=== PATIENT | male | born 1945 | race Caucasian/White ===

== ENCOUNTER → 2016-09-09 | Outpatient (CLI) | payer MEDICARE, OTHER ==
[~2016-09-09] MED LIST: OMNIPAQUE 350 MG/ML, 75ML BOTTLE ONE
== END | disposition home or self-care (01) ==
LOC: CFH 09:34
PROVIDERS: ATTEND Nurse Practitioner
DX: J43.9 Emphysema, unspecified (principal); R59.1 Generalized enlarged lymph nodes; J92.9 Pleural plaque without asbestos; Z87.891 Personal history of nicotine dependence; R91.8 Other nonspecific abnormal finding of lung field; R06.02 Shortness of breath
CPT/HCPCS: 71260; 82565; 93978; Q9967

== ENCOUNTER 2016-09-15 05:18 | Day surgery (SDC) | payer MEDICARE, OTHER ==
[~2016-09-15] VITALS: Ht 182.9 cm; Wt 72.0 kg
[2016-09-15] MEDS ORDERED: ASPI-496 PO (06:32)
[2016-09-15] MEDS ORDERED: LACTATED RINGERS 1,000 ML IV SCH (06:32)
[2016-09-15 06:33] VITALS: BP 112/74
[2016-09-15] MEDS ORDERED: FENTANYL PF 250 MCG/5ML ONE (07:12)
[2016-09-15] MEDS ORDERED: MIDAZOLAM 1 MG/ML, 2ML ONE (07:12)
[2016-09-15] MEDS ORDERED: MEPERIDINE/PF 25MG/0.5ML IVPush PRN (07:30)
[2016-09-15] MEDS ORDERED: ACETAMINOPHEN 325 MG TABLET PO PRN (07:30)
[2016-09-15] MEDS ORDERED: LABETALOL 5MG/ML, 20ML IV PRN (07:30)
[2016-09-15] MEDS ORDERED: PROMETHAZINE 25 MG/ML, 1ML IV PRN (07:30)
[2016-09-15] MEDS ORDERED: MIDAZOLAM 1 MG/ML, 2ML IV PRN (07:30)
[2016-09-15] MEDS ORDERED: HYDROmorphone 1 MG/ML, 1ML IV PRN (07:30)
[2016-09-15] MEDS ORDERED: METOCLOPRAMIDE 5 MG/ML, 2ML IV PRN (07:30)
[2016-09-15] MEDS ORDERED: ONDANSETRON 2MG/ML, 2ML IVPush PRN (07:30)
[2016-09-15] MEDS ORDERED: OXYcodone 5 MG/5 ML ORAL.SOL UDC PO PRN (07:30)
[2016-09-15] MEDS ORDERED: hydrALAzine 20 MG/ML, 1ML IV PRN (07:30)
[2016-09-15] MEDS ORDERED: ONDANSETRON 2MG/ML, 2ML ONE (07:39)
[2016-09-15] MEDS ORDERED: ROCURONIUM 10 MG/ML ONE (07:39)
[2016-09-15] MEDS ORDERED: PHENYLEPHRINE 10 MG/ML ONE (07:39)
[2016-09-15] MEDS ORDERED: SUCCINYLCHOLINE 20 MG/ML, 10ML ONE (07:39)
[2016-09-15] MEDS ORDERED: PROPOFOL 10 MG/ML, 20ML ONE (07:39)
[2016-09-15] MEDS ORDERED: DEXAMETHASONE 4 MG/ML, 1ML ONE (07:39)
[2016-09-15] MEDS ORDERED: FENTANYL PF 100 MCG/2ML ONE (09:06)
[2016-09-15] MEDS ORDERED: OXYcodone 5 MG/5 ML ORAL.SOL UDC ONE (09:06)
[2016-09-15] MEDS: FENTANYL PF 100 MCG/2ML IV PRN ×4 (09:10→09:29)
== END 2016-09-15 11:00 | disposition home or self-care (01) ==
LOC: OUT 05:18
PROVIDERS: ATTEND Internal Medicine
DX: C34.12 Malignant neoplasm of upper lobe, left bronchus or lung (principal); F17.210 Nicotine dependence, cigarettes, uncomplicated; M19.90 Unspecified osteoarthritis, unspecified site; Z82.49 Family history of ischemic heart disease and other diseases of the circulatory system
CPT/HCPCS: 31623; 31627; 31628; 71010; 88112; 88172; 88173; 88177; 88305; 93005; J0330; J1100; J2250; J2370; J2405; J2704; J3010; J7120; 31625; 31629

== ENCOUNTER → 2016-09-18 | Outpatient (CLI) | payer MEDICARE, OTHER ==
[~2016-09-18] MED LIST changes: +ASPI-496 PO; -OMNIPAQUE 350 MG/ML, 75ML BOTTLE ONE
== END | disposition home or self-care (01) ==
LOC: PETCFH 08:59
PROVIDERS: ATTEND Internal Medicine
DX: C34.12 Malignant neoplasm of upper lobe, left bronchus or lung (principal); R59.1 Generalized enlarged lymph nodes; R91.8 Other nonspecific abnormal finding of lung field
CPT/HCPCS: 78815; A9552

== ENCOUNTER 2016-10-12 21:40 | Emergency (ER) | payer MEDICARE, OTHER ==
[~2016-10-12] VITALS: Ht 182.9 cm; Wt 73.4 kg
[2016-10-12 22:07] VITALS: BP 124/92
== END 2016-10-12 23:32 | disposition home or self-care (01) ==
LOC: ED 23:03
DX: K56.41 Fecal impaction (principal); F17.200 Nicotine dependence, unspecified, uncomplicated; Z85.118 Personal history of other malignant neoplasm of bronchus and lung
CPT/HCPCS: 99284

== ENCOUNTER 2016-10-15 11:28 | Day surgery (SDC) | payer MEDICARE, OTHER ==
[~2016-10-15] VITALS: Ht 182.9 cm; Wt 72.0 kg
[2016-10-15 12:14] VITALS: BP 115/78
[2016-10-15] MEDS ORDERED: SODIUM CHLORIDE 0.9% 1,000 ML IV SCH (12:30)
[2016-10-15] MEDS ORDERED: VANCOMYCIN 1,400 MG in SODIUM CHLORIDE 0.9% 250 ML IV ONE (12:30)
[2016-10-15] MEDS ORDERED: VANCOMYCIN PER PHARMACY MC ONE (12:30)
[2016-10-15] MEDS ORDERED: NALOXONE 1 MG/ML, 2ML ONE (13:05)
[2016-10-15] MEDS ORDERED: FENTANYL PF 100 MCG/2ML ONE (13:05)
[2016-10-15] MEDS ORDERED: FLUMAZENIL 0.1 MG/1 ML, 5ML ONE (13:05)
[2016-10-15] MEDS ORDERED: MIDAZOLAM 1 MG/ML, 5ML ONE (13:05)
[2016-10-15] MEDS ORDERED: LIDOCAINE 1%, 20ML ONE (13:14)
== END 2016-10-15 15:30 | disposition home or self-care (01) ==
LOC: OUT 11:28
PROVIDERS: ATTEND Internal Medicine Hematology & Oncology
DX: C34.90 Malignant neoplasm of unspecified part of unspecified bronchus or lung (principal); Z88.0 Allergy status to penicillin
CPT/HCPCS: 36561; 76937; 77001; 99156; 99157; C1788; C1894; J1642; J2250; J3010; J3370; J3490; J7030; J7050; J2310

== ENCOUNTER → 2016-11-10 | Outpatient (CLI) | payer MEDICARE, OTHER | END | disposition home or self-care (01) | LOC: ROC 10:31 | PROVIDERS: ATTEND Radiology Radiation Oncology | DX: C34.32 Malignant neoplasm of lower lobe, left bronchus or lung (principal) | CPT/HCPCS: G0463 ==

== ENCOUNTER → 2016-11-25 | Outpatient (CLI) | payer MEDICARE, OTHER | END | disposition home or self-care (01) | LOC: RAD 16:14 | PROVIDERS: ATTEND Internal Medicine Hematology & Oncology | DX: M17.11 Unilateral primary osteoarthritis, right knee (principal); M25.761 Osteophyte, right knee; C34.90 Malignant neoplasm of unspecified part of unspecified bronchus or lung; C79.31 Secondary malignant neoplasm of brain; I81 Portal vein thrombosis; I95.1 Orthostatic hypotension; Z92.21 Personal history of antineoplastic chemotherapy ==

== ENCOUNTER → 2016-12-15 | Outpatient (CLI) | payer MEDICARE, OTHER ==
[2016-12-15 15:59] LABS: BLOOD UREA NITROGEN 17 mg/dL (7-18)
== END | disposition home or self-care (01) ==
LOC: LAB 12:54
PROVIDERS: ATTEND Radiology Radiation Oncology
DX: C79.31 Secondary malignant neoplasm of brain (principal); C34.90 Malignant neoplasm of unspecified part of unspecified bronchus or lung; T50.8X4A Poisoning by diagnostic agents, undetermined, initial encounter
CPT/HCPCS: 36415; 82565; 84520

== ENCOUNTER → 2016-12-24 | Outpatient (CLI) | payer MEDICARE, OTHER ==
[~2016-12-24] MED LIST changes: +GADOBUTROL 7.5 MMOL/7.5 ML VIAL ONE
== END | disposition home or self-care (01) ==
LOC: CFH 13:12
PROVIDERS: ATTEND Radiology Radiation Oncology
DX: C79.31 Secondary malignant neoplasm of brain (principal); C34.12 Malignant neoplasm of upper lobe, left bronchus or lung; I67.82 Cerebral ischemia; Z92.3 Personal history of irradiation
CPT/HCPCS: 70553; A9585

== ENCOUNTER → 2016-12-31 | Outpatient (CLI) | payer MEDICARE, OTHER ==
[~2016-12-31] MED LIST changes: -GADOBUTROL 7.5 MMOL/7.5 ML VIAL ONE; +OMNIPAQUE 350 MG/ML, 100ML BOTTLE ONE
== END | disposition home or self-care (01) ==
LOC: CFH 11:03
PROVIDERS: ATTEND Internal Medicine Hematology & Oncology
DX: J92.9 Pleural plaque without asbestos (principal); I70.0 Atherosclerosis of aorta; R59.0 Localized enlarged lymph nodes; K40.90 Unilateral inguinal hernia, without obstruction or gangrene, not specified as recurrent; M51.36 Other intervertebral disc degeneration, lumbar region; C34.90 Malignant neoplasm of unspecified part of unspecified bronchus or lung
CPT/HCPCS: 71260; 74177; Q9967

== ENCOUNTER → 2017-02-16 | Outpatient (CLI) | payer MEDICARE, OTHER ==
[~2017-02-16] MED LIST changes: -OMNIPAQUE 350 MG/ML, 100ML BOTTLE ONE
[2017-02-16 15:37] LABS: BLOOD UREA NITROGEN 15 mg/dL (7-18)
== END | disposition home or self-care (01) ==
LOC: LAB 12:10
PROVIDERS: ATTEND Radiology Radiation Oncology
DX: T50.8X4A Poisoning by diagnostic agents, undetermined, initial encounter (principal); C79.31 Secondary malignant neoplasm of brain
CPT/HCPCS: 36415; 82565; 84520

== ENCOUNTER → 2017-04-14 | Outpatient (CLI) | payer MEDICARE, OTHER ==
[~2017-04-14] MED LIST changes: +OMNIPAQUE 350 MG/ML, 100ML BOTTLE ONE
== END | disposition home or self-care (01) ==
LOC: CFH 12:36
PROVIDERS: ATTEND Internal Medicine Hematology & Oncology
DX: J47.9 Bronchiectasis, uncomplicated (principal); J94.8 Other specified pleural conditions; R59.1 Generalized enlarged lymph nodes; C34.90 Malignant neoplasm of unspecified part of unspecified bronchus or lung
CPT/HCPCS: 71260; 74177; Q9967; 82565

== ENCOUNTER → 2017-04-27 | Outpatient (CLI) | payer MEDICARE, OTHER ==
[~2017-04-27] MED LIST changes: +GADOBUTROL 7.5 MMOL/7.5 ML PFS ONE; -OMNIPAQUE 350 MG/ML, 100ML BOTTLE ONE
== END | disposition home or self-care (01) ==
LOC: CFH 09:16
PROVIDERS: ATTEND Radiology Radiation Oncology
DX: C79.31 Secondary malignant neoplasm of brain (principal); C34.12 Malignant neoplasm of upper lobe, left bronchus or lung; G93.6 Cerebral edema
CPT/HCPCS: 70553; A9585

== ENCOUNTER → 2017-04-30 | Outpatient (CLI) | payer MEDICARE, OTHER ==
[~2017-04-30] MED LIST changes: -GADOBUTROL 7.5 MMOL/7.5 ML PFS ONE
== END | disposition home or self-care (01) ==
LOC: ROC 07:51
PROVIDERS: ATTEND Radiology Radiation Oncology
DX: Z08 Encounter for follow-up examination after completed treatment for malignant neoplasm (principal); C34.12 Malignant neoplasm of upper lobe, left bronchus or lung; C79.31 Secondary malignant neoplasm of brain; F17.210 Nicotine dependence, cigarettes, uncomplicated; J43.9 Emphysema, unspecified; Z79.82 Long term (current) use of aspirin
CPT/HCPCS: G0463

== ENCOUNTER → 2017-05-07 | Outpatient (CLI) | payer MEDICARE, OTHER ==
[~2017-05-07] MED LIST changes: +GADOBUTROL 7.5 MMOL/7.5 ML PFS ONE
== END | disposition home or self-care (01) ==
LOC: CFH 11:10
PROVIDERS: ATTEND Radiology Radiation Oncology
DX: C79.31 Secondary malignant neoplasm of brain (principal); C34.12 Malignant neoplasm of upper lobe, left bronchus or lung
CPT/HCPCS: 70553; A9585

== ENCOUNTER → 2017-07-07 | Outpatient (CLI) | payer MEDICARE, OTHER ==
[~2017-07-07] MED LIST changes: -GADOBUTROL 7.5 MMOL/7.5 ML PFS ONE
[2017-07-07 15:47] LABS: CREATININE 1.52 mg/dL (0.7-1.3)
== END | disposition home or self-care (01) ==
LOC: LAB 13:28
PROVIDERS: ATTEND Radiology Radiation Oncology
DX: C79.31 Secondary malignant neoplasm of brain (principal); T50.8X4A Poisoning by diagnostic agents, undetermined, initial encounter
CPT/HCPCS: 36415; 82565; 84520

== ENCOUNTER → 2017-07-13 | Outpatient (CLI) | payer MEDICARE, OTHER ==
[~2017-07-13] MED LIST changes: +GADOBUTROL 7.5 MMOL/7.5 ML VIAL ONE
== END | disposition home or self-care (01) ==
LOC: CFH 09:06
PROVIDERS: ATTEND Radiology Radiation Oncology
DX: C79.31 Secondary malignant neoplasm of brain (principal); G31.89 Other specified degenerative diseases of nervous system; R91.8 Other nonspecific abnormal finding of lung field; N40.0 Benign prostatic hyperplasia without lower urinary tract symptoms; Z85.118 Personal history of other malignant neoplasm of bronchus and lung
CPT/HCPCS: 70553; 71260; 74177; A9585

== ENCOUNTER → 2017-07-16 | Outpatient (CLI) | payer MEDICARE, OTHER ==
[~2017-07-16] MED LIST changes: -GADOBUTROL 7.5 MMOL/7.5 ML VIAL ONE
== END | disposition home or self-care (01) ==
LOC: ROC 07:10
PROVIDERS: ATTEND Radiology Radiation Oncology
DX: Z08 Encounter for follow-up examination after completed treatment for malignant neoplasm (principal); C79.31 Secondary malignant neoplasm of brain; C34.12 Malignant neoplasm of upper lobe, left bronchus or lung; J43.9 Emphysema, unspecified
CPT/HCPCS: G0463

== ENCOUNTER → 2017-07-30 | Outpatient (CLI) | payer MEDICARE, OTHER ==
[2017-07-30 12:16] LABS: ALANINE AMINOTRANSFERASE 18 U/L (12-78); ALBUMIN 3.5 g/dL (3.4-5.0); ANION GAP 7 mmol/L (5-15); CALCIUM 11.1 mg/dL (8.5-10.1); CHLORIDE 103 mmol/L (98-107); CREATININE 1.46 mg/dL (0.7-1.3)
[2017-07-30 12:18] LABS: ALKALINE PHOSPHATASE 96 U/L (45-117); BILIRUBIN,TOTAL 0.2 mg/dL (0.2-1.0); TOTAL PROTEIN 7.3 g/dL (6.4-8.2)
== END | disposition home or self-care (01) ==
LOC: CFH 11:14
PROVIDERS: ATTEND Internal Medicine Hematology & Oncology
DX: C79.31 Secondary malignant neoplasm of brain (principal); C34.90 Malignant neoplasm of unspecified part of unspecified bronchus or lung; I81 Portal vein thrombosis; I95.1 Orthostatic hypotension; E83.49 Other disorders of magnesium metabolism; D70.1 Agranulocytosis secondary to cancer chemotherapy; E83.52 Hypercalcemia
CPT/HCPCS: 36415; 80053

== ENCOUNTER → 2017-09-22 | Outpatient (CLI) | payer MEDICARE, OTHER ==
[2017-09-22 16:00] LABS: CREATININE 1.24 mg/dL (0.7-1.3)
== END | disposition home or self-care (01) ==
LOC: CFH 12:59
PROVIDERS: ATTEND Radiology Radiation Oncology
DX: T50.8X4A Poisoning by diagnostic agents, undetermined, initial encounter (principal); C79.31 Secondary malignant neoplasm of brain
CPT/HCPCS: 36415; 82565; 84520

== ENCOUNTER → 2017-09-28 | Outpatient (CLI) | payer MEDICARE, OTHER ==
[~2017-09-28] MED LIST changes: +GADOBUTROL 7.5 MMOL/7.5 ML PFS ONE; +OMNIPAQUE 350 MG/ML, 100ML BOTTLE ONE
== END | disposition home or self-care (01) ==
LOC: CFH 08:41
PROVIDERS: ATTEND Internal Medicine Hematology & Oncology
DX: C79.31 Secondary malignant neoplasm of brain (principal); C34.12 Malignant neoplasm of upper lobe, left bronchus or lung; G93.6 Cerebral edema; N40.0 Benign prostatic hyperplasia without lower urinary tract symptoms; R16.1 Splenomegaly, not elsewhere classified
CPT/HCPCS: 70553; 71260; 74177; A9585; Q9967

== ENCOUNTER → 2017-10-01 | Outpatient (CLI) | payer MEDICARE, OTHER ==
[~2017-10-01] MED LIST changes: -GADOBUTROL 7.5 MMOL/7.5 ML PFS ONE; -OMNIPAQUE 350 MG/ML, 100ML BOTTLE ONE
== END | disposition home or self-care (01) ==
LOC: ROC 09:35
PROVIDERS: ATTEND Radiology Radiation Oncology
DX: C79.31 Secondary malignant neoplasm of brain (principal); C34.12 Malignant neoplasm of upper lobe, left bronchus or lung; N40.0 Benign prostatic hyperplasia without lower urinary tract symptoms; J43.9 Emphysema, unspecified; F17.210 Nicotine dependence, cigarettes, uncomplicated; Z92.3 Personal history of irradiation
CPT/HCPCS: G0463

== ENCOUNTER → 2017-10-07 | Outpatient (CLI) | payer MEDICARE, OTHER | END | disposition home or self-care (01) | LOC: CFH 13:38 | PROVIDERS: ATTEND Radiology Radiation Oncology | DX: G31.9 Degenerative disease of nervous system, unspecified (principal); G93.6 Cerebral edema; R90.82 White matter disease, unspecified | CPT/HCPCS: 70553 ==

== ENCOUNTER → 2017-11-09 | Outpatient (CLI) | payer MEDICARE, OTHER ==
[2017-11-09 15:57] LABS: CREATININE 1.28 mg/dL (0.7-1.3)
== END | disposition home or self-care (01) ==
LOC: CFH 11:29
PROVIDERS: ATTEND Radiology Radiation Oncology
DX: C79.31 Secondary malignant neoplasm of brain (principal); T50.8X4A Poisoning by diagnostic agents, undetermined, initial encounter
CPT/HCPCS: 36415; 82565; 84520

== ENCOUNTER → 2017-11-10 | Outpatient (CLI) | payer MEDICARE, OTHER ==
[~2017-11-10] MED LIST changes: +GADOBUTROL 7.5 MMOL/7.5 ML PFS ONE
== END | disposition home or self-care (01) ==
LOC: CFH 08:21
PROVIDERS: ATTEND Radiology Radiation Oncology
DX: C79.31 Secondary malignant neoplasm of brain (principal); C34.90 Malignant neoplasm of unspecified part of unspecified bronchus or lung; G31.9 Degenerative disease of nervous system, unspecified; R60.9 Edema, unspecified
CPT/HCPCS: 70553; A9585

== ENCOUNTER → 2017-11-12 | Outpatient (CLI) | payer MEDICARE, OTHER ==
[~2017-11-12] MED LIST changes: -GADOBUTROL 7.5 MMOL/7.5 ML PFS ONE
== END | disposition home or self-care (01) ==
LOC: ROC 07:25
PROVIDERS: ATTEND Radiology Radiation Oncology
DX: Z08 Encounter for follow-up examination after completed treatment for malignant neoplasm (principal); C79.31 Secondary malignant neoplasm of brain; C34.31 Malignant neoplasm of lower lobe, right bronchus or lung
CPT/HCPCS: G0463

== ENCOUNTER → 2018-01-04 | Outpatient (CLI) | payer MEDICARE, OTHER ==
[~2018-01-04] MED LIST changes: +OMNIPAQUE 350 MG/ML, 100ML BOTTLE ONE
== END | disposition home or self-care (01) ==
LOC: CFH 11:53
PROVIDERS: ATTEND Internal Medicine Hematology & Oncology
DX: Z08 Encounter for follow-up examination after completed treatment for malignant neoplasm (principal); C34.91 Malignant neoplasm of unspecified part of right bronchus or lung; C34.92 Malignant neoplasm of unspecified part of left bronchus or lung; J84.10 Pulmonary fibrosis, unspecified; K40.90 Unilateral inguinal hernia, without obstruction or gangrene, not specified as recurrent; Z85.118 Personal history of other malignant neoplasm of bronchus and lung
CPT/HCPCS: 71260; 74177; Q9967

== ENCOUNTER → 2018-01-07 | Outpatient (CLI) | payer MEDICARE, OTHER ==
[~2018-01-07] MED LIST changes: -OMNIPAQUE 350 MG/ML, 100ML BOTTLE ONE
[2018-01-07 16:29] LABS: CREATININE 1.26 mg/dL (0.7-1.3)
== END | disposition home or self-care (01) ==
LOC: CFH 12:40
PROVIDERS: ATTEND Radiology Radiation Oncology
DX: T50.8X4A Poisoning by diagnostic agents, undetermined, initial encounter (principal); F17.200 Nicotine dependence, unspecified, uncomplicated; Z88.0 Allergy status to penicillin
CPT/HCPCS: 36415; 82565; 84520

== ENCOUNTER → 2018-01-12 | Outpatient (CLI) | payer MEDICARE, OTHER ==
[~2018-01-12] MED LIST changes: +GADOBUTROL 7.5 MMOL/7.5 ML PFS ONE
== END | disposition home or self-care (01) ==
LOC: CFH 09:44
PROVIDERS: ATTEND Radiology Radiation Oncology
DX: R93.0 Abnormal findings on diagnostic imaging of skull and head, not elsewhere classified (principal); C79.31 Secondary malignant neoplasm of brain
CPT/HCPCS: 70553; A9585

== ENCOUNTER → 2018-01-14 | Outpatient (CLI) | payer MEDICARE, OTHER ==
[~2018-01-14] MED LIST changes: -GADOBUTROL 7.5 MMOL/7.5 ML PFS ONE
== END | disposition home or self-care (01) ==
LOC: ROC 07:06
PROVIDERS: ATTEND Radiology Radiation Oncology
DX: C79.31 Secondary malignant neoplasm of brain (principal); C34.12 Malignant neoplasm of upper lobe, left bronchus or lung; F17.200 Nicotine dependence, unspecified, uncomplicated
CPT/HCPCS: G0463

== ENCOUNTER → 2018-02-03 | Outpatient (CLI) | payer MEDICARE, OTHER ==
[2018-02-03 16:05] LABS: CALCIUM 10.5 mg/dL (8.5-10.1); CHLORIDE 107 mmol/L (98-107)
[2018-02-03 16:08] LABS: ANION GAP 9 mmol/L (5-15); CREATININE 1.17 mg/dL (0.7-1.3)
== END | disposition home or self-care (01) ==
LOC: CFH 12:15
PROVIDERS: ATTEND Internal Medicine Hematology & Oncology
DX: C34.90 Malignant neoplasm of unspecified part of unspecified bronchus or lung (principal); C79.31 Secondary malignant neoplasm of brain; I81 Portal vein thrombosis; I95.1 Orthostatic hypotension; E83.49 Other disorders of magnesium metabolism; D70.1 Agranulocytosis secondary to cancer chemotherapy; E83.52 Hypercalcemia; R53.0 Neoplastic (malignant) related fatigue; R63.0 Anorexia; E86.0 Dehydration
CPT/HCPCS: 36415; 80048

== ENCOUNTER 2018-03-02 14:38 | Inpatient (IN) | payer MEDICARE, OTHER ==
[~2018-03-02] VITALS: Ht 182.9 cm; Wt 62.1 kg
[2018-03-02 15:24] LABS: BASOPHILS # (AUTO) 0.02 x10^3/uL (0-0.1); BASOPHILS % (AUTO) 0 % (0-1); EOSINOPHILS # (AUTO) 0.11 x10^3/uL (0-0.4); EOSINOPHILS % (AUTO) 1 % (1-7); LYMPHOCYTES # (AUTO) 0.99 x10^3/uL (1-3.4); LYMPHOCYTES % (AUTO) 13 % (22-44); MD NO; MEAN CORPUSCULAR HEMOGLOBIN 30.3 pg (27.5-34.5); MEAN CORPUSCULAR HGB CONC 33.3 g/dL (33.2-36.2); MEAN CORPUSCULAR VOLUME 90.8 fL (81-97); MEAN PLATELET VOLUME 7.7 fL (7.4-10.4); MONOCYTES # (AUTO) 0.78 x10^3/uL (0.2-0.8); MONOCYTES % (AUTO) 10 % (2-9); NEUTROPHILS # (AUTO) 5.59 x10^3/uL (1.8-6.8); NEUTROPHILS % (AUTO) 75 % (42-75); PLATELET COUNT 218 x10^3/uL (130-400); RED BLOOD COUNT 3.96 x10^6/uL (4.38-5.82); RED CELL DISTRIBUTION WIDTH 13.8 % (9.4-14.8)
[2018-03-02 15:36] LABS: ALANINE AMINOTRANSFERASE 14 U/L (12-78); ALBUMIN 3.2 g/dL (3.4-5.0); ANION GAP 9 mmol/L (5-15); CALCIUM 11.4 mg/dL (8.5-10.1); CHLORIDE 105 mmol/L (98-107)
[2018-03-02 15:41] LABS: ALKALINE PHOSPHATASE 87 U/L (45-117); BILIRUBIN,TOTAL 0.5 mg/dL (0.2-1.0); FREE T4 (FREE THYROXINE) 1.26 ng/dL (0.76-1.46); TOTAL PROTEIN 7.9 g/dL (6.4-8.2); TROPONIN I < 0.015 ng/mL (0.000-0.045)
[2018-03-02] MEDS ORDERED: NS + 20MEQ KCL 1,000 ML IV SCH (15:52)
[2018-03-02] MEDS ORDERED: ACETAMINOPHEN 325 MG TABLET PO PRN (16:00)
[2018-03-02] MEDS ORDERED: ONDANSETRON 2MG/ML, 2ML IVPush PRN (16:00)
[2018-03-02] MEDS ORDERED: POLYETHYLENE GLYCOL 17 GM PACKET PO PRN (16:00)
[2018-03-02] MEDS ORDERED: morphine SULFATE 10 MG/ML, 1ML IVPush PRN (16:00)
[2018-03-02] MEDS ORDERED: GADOBUTROL 7.5 MMOL/7.5 ML PFS ONE (16:31)
[2018-03-02 16:57] VITALS: BP 107/72
[2018-03-02] MEDS ORDERED: DEXAMETHASONE 4 MG/ML, 1ML IVPush ONE (17:00)
[2018-03-02] MEDS: NICOTINE 7 MG/24 HR PATCH.TD24 TD SCH (18:21)
[2018-03-02] MEDS: ENOXAPARIN 40 MG/0.4 ML SQ SCH (18:21)
[2018-03-02] MEDS: FAMOTIDINE 20 MG TABLET PO SCH (20:34)
[2018-03-02] MEDS: DOCUSATE 100 MG CAPSULE PO PRN (20:34)
[2018-03-02 21:22] VITALS: BP 106/71
[2018-03-03 02:10] VITALS: BP 103/64
[2018-03-03 08:00] VITALS: BP 114/76
[2018-03-03 08:18] VITALS: BP 130/79
[2018-03-03] MEDS: SENNA/DOCUSATE TABLET PO SCH (09:31)
[2018-03-03] MEDS: ASPIRIN 81 MG TABLET EC PO SCH (09:31)
[2018-03-03] MEDS: FAMOTIDINE 20 MG TABLET PO SCH ×2 (09:31→20:17)
[2018-03-03] MEDS: DEXAMETHASONE 4 MG TABLET PO SCH ×2 (09:31→20:17)
[2018-03-03 12:50] VITALS: BP 110/68
[2018-03-03] MEDS: ENOXAPARIN 40 MG/0.4 ML SQ SCH (17:50)
[2018-03-03] MEDS: NICOTINE 7 MG/24 HR PATCH.TD24 TD SCH (17:50)
[2018-03-03 19:02] VITALS: BP 103/67
[2018-03-04 01:25] VITALS: BP 102/62
[2018-03-04] MEDS: DEXAMETHASONE 4 MG TABLET PO SCH ×2 (07:57→20:37)
[2018-03-04] MEDS: ASPIRIN 81 MG TABLET EC PO SCH (07:57)
[2018-03-04] MEDS: SENNA/DOCUSATE TABLET PO SCH (07:58)
[2018-03-04] MEDS: FAMOTIDINE 20 MG TABLET PO SCH ×2 (07:58→20:37)
[2018-03-04 10:56] VITALS: BP 111/72
[2018-03-04 13:15] VITALS: BP 119/77
[2018-03-04] MEDS: NICOTINE 7 MG/24 HR PATCH.TD24 TD SCH (17:40)
[2018-03-04] MEDS: ENOXAPARIN 40 MG/0.4 ML SQ SCH (17:40)
[2018-03-04 19:27] VITALS: BP 105/63
[2018-03-04] MEDS: DOCUSATE 100 MG CAPSULE PO PRN (22:19)
[2018-03-05 02:30] VITALS: BP 125/72
[2018-03-05 08:07] VITALS: BP 136/76
[2018-03-05] MEDS: DEXAMETHASONE 4 MG TABLET PO SCH ×2 (08:08→20:54)
[2018-03-05] MEDS: FAMOTIDINE 20 MG TABLET PO SCH ×2 (08:08→20:54)
[2018-03-05] MEDS: ASPIRIN 81 MG TABLET EC PO SCH (08:08)
[2018-03-05] MEDS: SENNA/DOCUSATE TABLET PO SCH (08:09)
[2018-03-05 14:45] VITALS: BP 100/61
[2018-03-05] MEDS: NICOTINE 7 MG/24 HR PATCH.TD24 TD SCH (17:07)
[2018-03-05] MEDS: ENOXAPARIN 40 MG/0.4 ML SQ SCH (17:07)
[2018-03-05 21:19] VITALS: BP 107/66
[2018-03-06 00:57] VITALS: BP 100/67
[2018-03-06 06:10] LABS: BASOPHILS % (AUTO) 0 % (0-1); EOSINOPHILS % (AUTO) 0 % (1-7); LYMPHOCYTES # (AUTO) 0.64 x10^3/uL (1-3.4); LYMPHOCYTES % (AUTO) 8 % (22-44); MD NO; MEAN CORPUSCULAR HGB CONC 33.2 g/dL (33.2-36.2); MEAN CORPUSCULAR VOLUME 90.4 fL (81-97); MONOCYTES % (AUTO) 6 % (2-9); NEUTROPHILS % (AUTO) 86 % (42-75); PLATELET COUNT 203 x10^3/uL (130-400); RED BLOOD COUNT 3.61 x10^6/uL (4.38-5.82); RED CELL DISTRIBUTION WIDTH 14.4 % (9.4-14.8)
[2018-03-06 06:17] LABS: ANION GAP 7 mmol/L (5-15); CALCIUM 11.1 mg/dL (8.5-10.1); CHLORIDE 103 mmol/L (98-107); CREATININE 1.03 mg/dL (0.7-1.3)
[2018-03-06 06:56] VITALS: BP 106/72
[2018-03-06] MEDS: ASPIRIN 81 MG TABLET EC PO SCH (09:00)
[2018-03-06] MEDS: SENNA/DOCUSATE TABLET PO SCH (09:00)
[2018-03-06] MEDS: DEXAMETHASONE 4 MG TABLET PO SCH ×2 (09:36→20:49)
[2018-03-06] MEDS: FAMOTIDINE 20 MG TABLET PO SCH ×2 (09:36→20:49)
[2018-03-06 12:45] VITALS: BP 105/58
[2018-03-06] MEDS: NICOTINE 7 MG/24 HR PATCH.TD24 TD SCH (18:30)
[2018-03-06] MEDS: ENOXAPARIN 40 MG/0.4 ML SQ SCH (18:30)
[2018-03-06 20:11] VITALS: BP 100/66
[2018-03-07 01:23] VITALS: BP 102/66
[2018-03-07 07:32] VITALS: BP 120/82
[2018-03-07] MEDS: SENNA/DOCUSATE TABLET PO SCH (10:17)
[2018-03-07] MEDS: DEXAMETHASONE 4 MG TABLET PO SCH ×2 (10:17→21:06)
[2018-03-07] MEDS: FAMOTIDINE 20 MG TABLET PO SCH ×2 (10:17→21:06)
[2018-03-07 12:34] VITALS: BP 108/72
[2018-03-07] MEDS: ENOXAPARIN 40 MG/0.4 ML SQ SCH (18:44)
[2018-03-07] MEDS: NICOTINE 7 MG/24 HR PATCH.TD24 TD SCH (18:44)
[2018-03-07 19:09] VITALS: BP 104/66
[2018-03-08 01:44] VITALS: BP 112/73
[2018-03-08 06:10] LABS: BASOPHILS % (AUTO) 0 % (0-1); EOSINOPHILS % (AUTO) 0 % (1-7); LYMPHOCYTES # (AUTO) 0.59 x10^3/uL (1-3.4); LYMPHOCYTES % (AUTO) 8 % (22-44); MD NO; MEAN CORPUSCULAR HEMOGLOBIN 30.3 pg (27.5-34.5); MEAN CORPUSCULAR HGB CONC 33.3 g/dL (33.2-36.2); MEAN PLATELET VOLUME 7.9 fL (7.4-10.4); MONOCYTES # (AUTO) 0.43 x10^3/uL (0.2-0.8); MONOCYTES % (AUTO) 5 % (2-9); NEUTROPHILS # (AUTO) 6.93 x10^3/uL (1.8-6.8); NEUTROPHILS % (AUTO) 87 % (42-75); PLATELET COUNT 201 x10^3/uL (130-400); RED BLOOD COUNT 3.74 x10^6/uL (4.38-5.82); RED CELL DISTRIBUTION WIDTH 14.3 % (9.4-14.8)
[2018-03-08 06:21] LABS: ANION GAP 7 mmol/L (5-15); CALCIUM 10.6 mg/dL (8.5-10.1); CHLORIDE 104 mmol/L (98-107)
[2018-03-08 06:22] LABS: CREATININE 1.05 mg/dL (0.7-1.3)
[2018-03-08 06:57] VITALS: BP 109/74
[2018-03-08] MEDS: DEXAMETHASONE 4 MG TABLET PO SCH ×2 (08:11→20:28)
[2018-03-08] MEDS: SENNA/DOCUSATE TABLET PO SCH (08:11)
[2018-03-08] MEDS: FAMOTIDINE 20 MG TABLET PO SCH ×2 (08:11→20:28)
[2018-03-08] MEDS: SODIUM CHLORIDE 0.9% 1,000 ML IV SCH ×3 (11:44→23:18)
[2018-03-08 12:28] VITALS: BP 105/68
[2018-03-08] MEDS: ENOXAPARIN 40 MG/0.4 ML SQ SCH (17:10)
[2018-03-08] MEDS: NICOTINE 7 MG/24 HR PATCH.TD24 TD SCH ×2 (17:10→20:34)
[2018-03-08 20:32] VITALS: BP 113/72
[2018-03-09 02:30] VITALS: BP 123/75
[2018-03-09] MEDS: SODIUM CHLORIDE 0.9% 1,000 ML IV SCH ×3 (05:55→18:34)
[2018-03-09 06:32] LABS: ALBUMIN 2.6 g/dL (3.4-5.0); ANION GAP 8 mmol/L (5-15); CHLORIDE 107 mmol/L (98-107); CREATININE 0.92 mg/dL (0.7-1.3)
[2018-03-09 06:52] VITALS: BP 102/63
[2018-03-09] MEDS: SENNA/DOCUSATE TABLET PO SCH (10:34)
[2018-03-09] MEDS: FAMOTIDINE 20 MG TABLET PO SCH ×2 (10:34→21:14)
[2018-03-09] MEDS: DEXAMETHASONE 4 MG TABLET PO SCH ×2 (10:34→21:14)
[2018-03-09 13:15] VITALS: BP 108/70
[2018-03-09] MEDS: ENOXAPARIN 40 MG/0.4 ML SQ SCH (17:54)
[2018-03-09 18:45] VITALS: BP 104/63
[2018-03-09] MEDS: NICOTINE 7 MG/24 HR PATCH.TD24 TD SCH (22:05)
[2018-03-10 01:13] VITALS: BP 98/54
[2018-03-10] MEDS: SODIUM CHLORIDE 0.9% 1,000 ML IV SCH ×3 (02:02→21:10)
[2018-03-10 06:45] VITALS: BP 92/59
[2018-03-10] MEDS ORDERED: FENTANYL PF 100 MCG/2ML ONE ×2 (08:44→17:16)
[2018-03-10] MEDS ORDERED: CEFAZOLIN 1,000 MG ONE (09:00)
[2018-03-10] MEDS ORDERED: PROPOFOL 10 MG/ML, 20ML ONE (09:00)
[2018-03-10] MEDS: SENNA/DOCUSATE TABLET PO SCH (09:00)
[2018-03-10] MEDS ORDERED: ONDANSETRON 2MG/ML, 2ML ONE (09:00)
[2018-03-10] MEDS ORDERED: DEXAMETHASONE 4 MG/ML, 1ML ONE (09:00)
[2018-03-10] MEDS: FAMOTIDINE 20 MG TABLET PO SCH ×2 (09:00→20:38)
[2018-03-10] MEDS: DEXAMETHASONE 4 MG TABLET PO SCH ×2 (09:00→20:39)
[2018-03-10 12:45] VITALS: BP 96/39
[2018-03-10] MEDS ORDERED: CLINDAMYCIN 150 MG/ML, 6ML ONE (14:07)
[2018-03-10] MEDS ORDERED: FENTANYL PF 250 MCG/5ML ONE (14:10)
[2018-03-10] MEDS ORDERED: ONDANSETRON 2MG/ML, 2ML IV PRN (15:00)
[2018-03-10] MEDS ORDERED: OXYcodone 5 MG/5 ML ORAL.SOL UDC PO PRN (15:00)
[2018-03-10] MEDS ORDERED: ONDANSETRON ODT 8 MG PO PRN (15:00)
[2018-03-10] MEDS ORDERED: HALOPERIDOL 5 MG/ML IV PRN (15:00)
[2018-03-10] MEDS ORDERED: ACETAMINOPHEN 325 MG TABLET PO PRN (15:00)
[2018-03-10] MEDS ORDERED: DIAZEPAM 5 MG/ML, 2ML IVPush PRN (15:00)
[2018-03-10] MEDS ORDERED: FENTANYL PF 100 MCG/2ML IV PRN (15:00)
[2018-03-10] MEDS ORDERED: PROCHLORPERAZINE 5 MG/ML, 2ML IM PRN (15:00)
[2018-03-10] MEDS ORDERED: MORPHINE SULFATE 4 MG/ML, 1ML IVPush PRN (15:00)
[2018-03-10] MEDS ORDERED: HYDROmorphone 1 MG/ML, 1ML IV PRN (15:00)
[2018-03-10] MEDS ORDERED: LORazepam 2 MG/ML, 1ML IVPush PRN (15:00)
[2018-03-10] MEDS ORDERED: BACITRACIN 50,000 UNIT IRRIG ONE (15:26)
[2018-03-10] MEDS ORDERED: BUPIVACAINE/PF-EPI 0.5% 1:200K INFIL ONE (15:27)
[2018-03-10] MEDS ORDERED: OXYcodone/APAP 5/325MG TABLET PO PRN (17:00)
[2018-03-10] MEDS: ENOXAPARIN 40 MG/0.4 ML SQ SCH (18:30)
[2018-03-10 20:00] VITALS: BP 119/75
[2018-03-10] MEDS: NICOTINE 7 MG/24 HR PATCH.TD24 TD SCH (20:38)
[2018-03-10] MEDS: CLINDAMYCIN 300 MG CAPSULE PO SCH (21:09)
[2018-03-10] MEDS: HYDROcodone/APAP 5/325 TABLET PO PRN (22:06)
[2018-03-11 02:00] VITALS: BP 123/79
[2018-03-11] MEDS: SODIUM CHLORIDE 0.9% 1,000 ML IV SCH ×3 (02:07→19:30)
[2018-03-11] MEDS: HYDROcodone/APAP 5/325 TABLET PO PRN (02:08)
[2018-03-11] MEDS: CLINDAMYCIN 300 MG CAPSULE PO SCH ×4 (02:28→20:51)
[2018-03-11 04:00] VITALS: BP 118/74
[2018-03-11 05:09] LABS: ANION GAP 7 mmol/L (5-15); BASOPHILS # (AUTO) 0.01 x10^3/uL (0-0.1); BASOPHILS % (AUTO) 0 % (0-1); CALCIUM 9.6 mg/dL (8.5-10.1); CHLORIDE 104 mmol/L (98-107); EOSINOPHILS % (AUTO) 0 % (1-7); LYMPHOCYTES # (AUTO) 0.42 x10^3/uL (1-3.4); LYMPHOCYTES % (AUTO) 4 % (22-44); MD NO; MEAN CORPUSCULAR HEMOGLOBIN 31.1 pg (27.5-34.5); MEAN CORPUSCULAR HGB CONC 34.3 g/dL (33.2-36.2); MEAN CORPUSCULAR VOLUME 90.7 fL (81-97); MEAN PLATELET VOLUME 7.8 fL (7.4-10.4); MONOCYTES # (AUTO) 0.83 x10^3/uL (0.2-0.8); MONOCYTES % (AUTO) 9 % (2-9); NEUTROPHILS # (AUTO) 8.51 x10^3/uL (1.8-6.8); NEUTROPHILS % (AUTO) 87 % (42-75); PLATELET COUNT 156 x10^3/uL (130-400); RED BLOOD COUNT 3.28 x10^6/uL (4.38-5.82); RED CELL DISTRIBUTION WIDTH 14.6 % (9.4-14.8)
[2018-03-11 05:10] LABS: CREATININE 0.76 mg/dL (0.7-1.3)
[2018-03-11] MEDS: DEXAMETHASONE 4 MG TABLET PO SCH ×2 (08:00→20:51)
[2018-03-11] MEDS: FAMOTIDINE 20 MG TABLET PO SCH ×2 (08:00→20:51)
[2018-03-11] MEDS: SENNA/DOCUSATE TABLET PO SCH (08:00)
[2018-03-11 11:09] VITALS: BP 106/62
[2018-03-11] MEDS ORDERED: GLYCOPYRROLATE 0.2MG/1ML, 5ML ONE (14:25)
[2018-03-11] MEDS ORDERED: MANNITOL PMX 20% [20 GM/100 ML] 500ML ONE (14:25)
[2018-03-11] MEDS ORDERED: PHENYLEPHRINE 10 MG/ML ONE (14:25)
[2018-03-11] MEDS ORDERED: NEOSTIGMINE 1 MG/ML, 10ML ONE (14:25)
[2018-03-11] MEDS ORDERED: ROCURONIUM 10 MG/ML,10ML ONE (14:25)
[2018-03-11 14:50] VITALS: BP 103/64
[2018-03-11 19:36] VITALS: BP 94/51
[2018-03-11] MEDS: NICOTINE 7 MG/24 HR PATCH.TD24 TD SCH (20:52)
[2018-03-12 01:51] VITALS: BP 107/62
[2018-03-12] MEDS: SODIUM CHLORIDE 0.9% 1,000 ML IV SCH (02:10)
[2018-03-12] MEDS: CLINDAMYCIN 300 MG CAPSULE PO SCH ×3 (02:35→14:34)
[2018-03-12 06:33] VITALS: BP 137/76
[2018-03-12] MEDS: FAMOTIDINE 20 MG TABLET PO SCH ×2 (09:47→20:54)
[2018-03-12] MEDS: SENNA/DOCUSATE TABLET PO SCH (09:47)
[2018-03-12] MEDS: DEXAMETHASONE 4 MG TABLET PO SCH ×2 (09:47→20:54)
[2018-03-12 12:37] VITALS: BP 121/74
[2018-03-12 19:04] VITALS: BP 119/74
[2018-03-12] MEDS: NICOTINE 7 MG/24 HR PATCH.TD24 TD SCH (20:54)
[2018-03-13 02:58] VITALS: BP 120/78
[2018-03-13 04:43] LABS: BASOPHILS % (AUTO) 0 % (0-1); EOSINOPHILS # (AUTO) 0.17 x10^3/uL (0-0.4); EOSINOPHILS % (AUTO) 2 % (1-7); LYMPHOCYTES # (AUTO) 0.65 x10^3/uL (1-3.4); LYMPHOCYTES % (AUTO) 6 % (22-44); MD NO; MEAN CORPUSCULAR HEMOGLOBIN 30.6 pg (27.5-34.5); MEAN CORPUSCULAR HGB CONC 33.5 g/dL (33.2-36.2); MEAN CORPUSCULAR VOLUME 91.1 fL (81-97); MEAN PLATELET VOLUME 7.7 fL (7.4-10.4); MONOCYTES # (AUTO) 0.87 x10^3/uL (0.2-0.8); MONOCYTES % (AUTO) 8 % (2-9); NEUTROPHILS # (AUTO) 9.22 x10^3/uL (1.8-6.8); NEUTROPHILS % (AUTO) 84 % (42-75); PLATELET COUNT 138 x10^3/uL (130-400); RED BLOOD COUNT 3.32 x10^6/uL (4.38-5.82); RED CELL DISTRIBUTION WIDTH 15.1 % (9.4-14.8)
[2018-03-13 04:49] LABS: ANION GAP 8 mmol/L (5-15); CALCIUM 10.3 mg/dL (8.5-10.1); CHLORIDE 101 mmol/L (98-107); CREATININE 0.85 mg/dL (0.7-1.3)
[2018-03-13 08:01] VITALS: BP 104/67
[2018-03-13] MEDS: SENNA/DOCUSATE TABLET PO SCH (08:51)
[2018-03-13] MEDS: DEXAMETHASONE 4 MG TABLET PO SCH ×2 (08:51→21:53)
[2018-03-13] MEDS: FAMOTIDINE 20 MG TABLET PO SCH ×2 (08:51→21:53)
[2018-03-13] MEDS: SODIUM CHLORIDE 1 GM TABLET PO SCH ×3 (08:55→21:53)
[2018-03-13 14:41] VITALS: BP 102/67
[2018-03-13] MEDS: MUPIROCIN OINT 2%, 22GM TP SCH ×2 (16:44→22:10)
[2018-03-13] MEDS ORDERED: BISACODYL 10 MG SUPP PR PRN (18:00)
[2018-03-13 19:16] VITALS: BP 108/67
[2018-03-13] MEDS: NICOTINE 7 MG/24 HR PATCH.TD24 TD SCH (22:10)
[2018-03-14 01:21] VITALS: BP 120/74
[2018-03-14 06:18] LABS: BASOPHILS # (AUTO) 0.02 x10^3/uL (0-0.1); BASOPHILS % (AUTO) 0 % (0-1); EOSINOPHILS # (AUTO) 0.01 x10^3/uL (0-0.4); EOSINOPHILS % (AUTO) 0 % (1-7); LYMPHOCYTES # (AUTO) 0.54 x10^3/uL (1-3.4); LYMPHOCYTES % (AUTO) 5 % (22-44); MD NO; MEAN CORPUSCULAR HEMOGLOBIN 30.1 pg (27.5-34.5); MEAN CORPUSCULAR HGB CONC 33.3 g/dL (33.2-36.2); MEAN CORPUSCULAR VOLUME 90.5 fL (81-97); MEAN PLATELET VOLUME 7.6 fL (7.4-10.4); MONOCYTES # (AUTO) 0.55 x10^3/uL (0.2-0.8); MONOCYTES % (AUTO) 5 % (2-9); NEUTROPHILS # (AUTO) 9.85 x10^3/uL (1.8-6.8); NEUTROPHILS % (AUTO) 90 % (42-75); PLATELET COUNT 145 x10^3/uL (130-400); RED BLOOD COUNT 3.51 x10^6/uL (4.38-5.82); RED CELL DISTRIBUTION WIDTH 15.7 % (9.4-14.8)
[2018-03-14 06:31] LABS: ANION GAP 9 mmol/L (5-15); CALCIUM 10.6 mg/dL (8.5-10.1); CHLORIDE 105 mmol/L (98-107); CREATININE 1.05 mg/dL (0.7-1.3)
[2018-03-14 07:58] VITALS: BP 116/68
[2018-03-14] MEDS: DEXAMETHASONE 4 MG TABLET PO SCH ×2 (08:33→20:21)
[2018-03-14] MEDS: SODIUM CHLORIDE 1 GM TABLET PO SCH ×3 (08:33→20:21)
[2018-03-14] MEDS: SENNA/DOCUSATE TABLET PO SCH (08:33)
[2018-03-14] MEDS: FAMOTIDINE 20 MG TABLET PO SCH ×2 (08:33→20:21)
[2018-03-14] MEDS: MUPIROCIN OINT 2%, 22GM TP SCH ×3 (08:35→20:27)
[2018-03-14 13:43] VITALS: BP 104/64
[2018-03-14 19:11] VITALS: BP 105/69
[2018-03-14] MEDS: NICOTINE 7 MG/24 HR PATCH.TD24 TD SCH (20:18)
[2018-03-15 02:50] VITALS: BP 114/72
[2018-03-15 05:44] LABS: ANION GAP 10 mmol/L (5-15); CALCIUM 10.7 mg/dL (8.5-10.1); CHLORIDE 102 mmol/L (98-107)
[2018-03-15 05:46] LABS: CREATININE 0.98 mg/dL (0.7-1.3)
[2018-03-15 08:00] VITALS: BP 96/61
[2018-03-15] MEDS: DEXAMETHASONE 4 MG TABLET PO SCH ×2 (08:04→19:48)
[2018-03-15] MEDS: SODIUM CHLORIDE 1 GM TABLET PO SCH ×3 (08:05→20:03)
[2018-03-15] MEDS: FAMOTIDINE 20 MG TABLET PO SCH ×2 (08:05→19:48)
[2018-03-15] MEDS: MUPIROCIN OINT 2%, 22GM TP SCH ×3 (08:05→21:00)
[2018-03-15] MEDS: SENNA/DOCUSATE TABLET PO SCH (08:05)
[2018-03-15] MEDS: SODIUM CHLORIDE 0.9% 1,000 ML IV SCH ×2 (10:11→20:04)
[2018-03-15 10:49] LABS: CULTURE INDICATED? NO; MICROSCOPIC AUTO
[2018-03-15 13:04] VITALS: BP 103/67
[2018-03-15] MEDS ORDERED: ERGOCALCIFEROL 50,000 UNIT CAPSULE PO SCH (17:30)
[2018-03-15 19:43] VITALS: BP 115/71
[2018-03-15] MEDS: NICOTINE 7 MG/24 HR PATCH.TD24 TD SCH (20:03)
[2018-03-16 03:25] VITALS: BP 120/65
[2018-03-16 05:32] LABS: BASOPHILS % (AUTO) 0 % (0-1); EOSINOPHILS % (AUTO) 0 % (1-7); LYMPHOCYTES # (AUTO) 0.53 x10^3/uL (1-3.4); LYMPHOCYTES % (AUTO) 6 % (22-44); MD NO; MEAN CORPUSCULAR HEMOGLOBIN 30.2 pg (27.5-34.5); MEAN CORPUSCULAR HGB CONC 33.3 g/dL (33.2-36.2); MEAN CORPUSCULAR VOLUME 90.5 fL (81-97); MEAN PLATELET VOLUME 7.8 fL (7.4-10.4); MONOCYTES # (AUTO) 0.38 x10^3/uL (0.2-0.8); MONOCYTES % (AUTO) 4 % (2-9); NEUTROPHILS # (AUTO) 7.76 x10^3/uL (1.8-6.8); NEUTROPHILS % (AUTO) 90 % (42-75); PLATELET COUNT 129 x10^3/uL (130-400); RED BLOOD COUNT 3.42 x10^6/uL (4.38-5.82); RED CELL DISTRIBUTION WIDTH 15.4 % (9.4-14.8)
[2018-03-16 05:42] LABS: ANION GAP 8 mmol/L (5-15); CALCIUM 10.5 mg/dL (8.5-10.1); CHLORIDE 103 mmol/L (98-107); CREATININE 0.94 mg/dL (0.7-1.3)
[2018-03-16] MEDS: SODIUM CHLORIDE 0.9% 1,000 ML IV SCH ×2 (06:36→15:49)
[2018-03-16 06:58] VITALS: BP 117/75
[2018-03-16] MEDS: DEXAMETHASONE 4 MG TABLET PO SCH ×2 (09:41→20:23)
[2018-03-16] MEDS: TAMSULOSIN 0.4 MG CAP.ER.24H PO SCH (09:42)
[2018-03-16] MEDS: FAMOTIDINE 20 MG TABLET PO SCH ×2 (09:43→20:23)
[2018-03-16] MEDS: SENNA/DOCUSATE TABLET PO SCH (09:43)
[2018-03-16] MEDS: SODIUM CHLORIDE 1 GM TABLET PO SCH ×3 (09:44→20:23)
[2018-03-16] MEDS: MUPIROCIN OINT 2%, 22GM TP SCH ×2 (09:45→15:49)
[2018-03-16 13:07] VITALS: BP 107/69
[2018-03-16] MEDS ORDERED: POLY17PO5 PO (16:06)
[2018-03-16] MEDS ORDERED: TAMS-11 PO (16:06)
[2018-03-16] MEDS ORDERED: FAMO20TA7 PO (16:06)
[2018-03-16] MEDS ORDERED: HYDR-3240 PO (16:06)
[2018-03-16] MEDS ORDERED: NICO-485 TD (16:06)
[2018-03-16] MEDS ORDERED: DEXA4TAB66 PO (16:06)
[2018-03-16] MEDS ORDERED: ACET325T14 PO (16:06)
[2018-03-16] MEDS ORDERED: ERGO500017 PO (16:06)
[2018-03-16] MEDS ORDERED: SODI1TAB PO (16:06)
[2018-03-16] MEDS ORDERED: MUPI22OI2 TP (16:15)
[2018-03-16] MEDS ORDERED: GADOBUTROL 7.5 MMOL/7.5 ML PFS ONE (17:04)
[2018-03-16 20:18] VITALS: BP 110/70
[2018-03-16] MEDS: NICOTINE 7 MG/24 HR PATCH.TD24 TD SCH (20:23)
[2018-03-17] MEDS: MUPIROCIN OINT 2%, 22GM TP SCH ×2 (01:56→10:24)
[2018-03-17 01:58] VITALS: BP 100/62
[2018-03-17] MEDS: SODIUM CHLORIDE 0.9% 1,000 ML IV SCH ×2 (02:01→14:00)
[2018-03-17 06:43] LABS: ANION GAP 8 mmol/L (5-15); CHLORIDE 104 mmol/L (98-107)
[2018-03-17 07:03] VITALS: BP 93/37
[2018-03-17] MEDS: DEXAMETHASONE 4 MG TABLET PO SCH (09:00)
[2018-03-17] MEDS: TAMSULOSIN 0.4 MG CAP.ER.24H PO SCH (09:00)
[2018-03-17] MEDS: SENNA/DOCUSATE TABLET PO SCH (09:01)
[2018-03-17] MEDS: FAMOTIDINE 20 MG TABLET PO SCH (09:01)
[2018-03-17] MEDS: SODIUM CHLORIDE 1 GM TABLET PO SCH (09:09)
[2018-03-17 13:04] VITALS: BP 106/61
== END 2018-03-17 14:05 | DRG 25 ==
LOC: ED 15:00 → SUATTDRO 15:34 → EDIP 15:52 → 3NW 16:35 → CCU 03-10 17:51 → 4NOR 03-11 10:28
PROVIDERS: ADMIT Family Medicine; ATTEND Family Medicine
PROC: 00B70ZZ Excision of Cerebral Hemisphere, Open Approach (ICD-10-PCS; principal; 2018-03-10 10:00)
DX: C79.31 Secondary malignant neoplasm of brain (principal); E43 Unspecified severe protein-calorie malnutrition; G93.6 Cerebral edema; C34.90 Malignant neoplasm of unspecified part of unspecified bronchus or lung; J98.11 Atelectasis; R47.01 Aphasia; Z68.1 Body mass index [BMI] 19.9 or less, adult; R29.6 Repeated falls; F17.200 Nicotine dependence, unspecified, uncomplicated; R49.0 Dysphonia; D72.829 Elevated white blood cell count, unspecified; E55.9 Vitamin D deficiency, unspecified; D63.0 Anemia in neoplastic disease
CPT/HCPCS: 36415; 70552; 70553; 71045; 80048; 80053; 81001; 82040; 82306; 82330; 83880; 83970; 84100; 84439; 84443; 84484; 85025; 87081; 88307; 88331; 93005; 96374; 99285; A9585; C1713; G0378; J0171; J0690; J1100; J1650; J2405; J2704; J2710; J3010; J3480; J3490; 92523-GN; A4648; C1781; G0515-GN; J2370; J7030

== ENCOUNTER → 2018-03-25 | Outpatient (CLI) | payer MEDICARE, OTHER ==
[~2018-03-25] MED LIST changes: +ACET325T14 PO; +DEXA4TAB66 PO; +ERGO500017 PO; +FAMO20TA7 PO; +HYDR-3240 PO; +MUPI22OI2 TP; +NICO-485 TD; +POLY17PO5 PO; +SODI1TAB PO; +TAMS-11 PO
== END | disposition home or self-care (01) ==
LOC: ROC 08:42
PROVIDERS: ATTEND Radiology Radiation Oncology
DX: Z02.9 Encounter for administrative examinations, unspecified (principal)

== ENCOUNTER → 2018-04-05 | Outpatient (CLI) | payer MEDICARE, OTHER | END | disposition home or self-care (01) | LOC: ROC 08:03 | PROVIDERS: ATTEND Radiology Radiation Oncology | DX: Z08 Encounter for follow-up examination after completed treatment for malignant neoplasm (principal); C79.31 Secondary malignant neoplasm of brain; C34.12 Malignant neoplasm of upper lobe, left bronchus or lung | CPT/HCPCS: G0463 ==